=== PATIENT | male | born 1945 | race Caucasian/White ===

== ENCOUNTER 2016-04-12 06:42 | Emergency (ER) | payer MEDICARE, MEDICAID ==
--- NOTE | 2016-04-12 07:59 | ED ---
Lower Extremity - HPI Summary HPI Summary: Pt here w/ Lt lateral femur pain since falling out of wheelchair 2 days ago. Wheelchair brakes malfunctioned and he has poor balance -fell onto floor. Pain in leg started 6 hours after fall - intermittent and no exacerbating factors he can ID (ie. no pain w/ transition from sitting to standing, no pain w/ palpation , no pain w/ weight bearing). Pain is sometimes alleviated with gentle movement/ repositioning by his . Pain is sharp when it occurs -feels like a knife stabbing. Other times, feels like a muscle cramping. Denies back pain although he has h/o lumbar OA. 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 Denies new onset weakness, numbness, tingling into LE since fall. He does home exercises and uses wheelchair. Pt has RSD "all over". This pain feels different. Also reports a h/o prostate CA in remission - no change in urinary sx. Denies fever, chills. Eating and drinking well. Last BM was 3 days ago which is normal for him. Did not hit his head nor lose consciousness. Denies other areas of injury/pain ( ie. RAJPUT, neck pain, change in vision, N/V). - History of Current Complaint Chief Complaint: EDExtremityLower Stated Complaint: LEG PAIN Time Seen by Provider: 04/12/16 07:10 Hx Obtained From: Patient, Family/Labor/Excavator - Pain Intensity: 7 - Allergies/Home Medications Allergies/Adverse Reactions: Allergies Allergy/AdvReac Type Severity Reaction Status Date / Time Perfume Allergy Eyes Verified 03/11/14 10:54 Itchy/Swollen/Red/Watery PMH/Surg Hx/FS Hx/Imm Hx Previously Healthy: Yes Endocrine/Hematology History: Reports: Hx Diabetes Cardiovascular History: Reports: Hx Angina, Hx Coronary Artery Disease, Hx Hypertension, Other Cardiovascular Problems/Disorders - ablation Respiratory History: Denies: Hx Asthma, Hx Chronic Obstructive Pulmonary Disease (COPD) GI History: Reports: Hx Gall Bladder Disease - cholecystectomy, Hx Gastrointestinal Bleed - Ghotra's esophagus History: Reports: Hx Kidney Stones Musculoskeletal History: Reports: Hx Arthritis, Hx Back Problems - OA lumbar spine, Hx Gout Sensory History: Reports: Hx Contacts or Glasses - for reading, Hx Vision Problem - left eye limited Opthamlomology History: Reports: Hx Contacts or Glasses - for reading, Hx Vision Problem - left eye limited Neurological History: Reports: Other Neuro Impairments/Disorders - RSD Psychiatric History: Reports: Hx Post Traumatic Stress Disorder - Cancer History Cancer Type, Location and Year: prostate cancer Hx Chemotherapy: No Hx Radiation Therapy: No - Surgical History Surgery Procedure, Year, and Place: rotator cuff, gall bladder Infectious Disease History: No Infectious Disease History: Denies: Traveled Outside the [place] in Last 30 Days - Family History Known Family History: Positive: None - Social History Occupation: Retired Lives: With Family Alcohol Use: None Hx Substance Use: No Substance Use Type: Reports: None Hx Tobacco Use: No Smoking Status (MU): Never Smoked Tobacco Review of Systems Negative: Fever, Chills, Fatigue Negative: Chest Pain Negative: Shortness Of Breath Negative: Abdominal Pain, Vomiting, Diarrhea, Nausea Genitourinary: Negative Positive: see HPI Musculoskeletal: Other - see HPI Negative: Rash, Bruising Neurological: Other - see HPI Psychological: Normal All Other Systems Reviewed And Are Negative: Yes Physical Exam Triage Information Reviewed: Yes Vital Signs On Initial Exam: Initial Vitals Temp Pulse Resp BP Pulse Ox 98.6 F 63 15 146/59 93 04/12/16 06:44 04/12/16 06:44 04/12/16 06:44 04/12/16 06:44 04/12/16 06:44 Vital Signs Reviewed: Yes Appearance: Positive: Well-Appearing, No Pain Distress, Well-Nourished Skin: Positive: Warm, Dry - tibial region w/ pernell pitting edema and scaling old , dried skin - no erythema, no ecchymosis Head/Face: Positive: Normal Head/Face Inspection Eyes: Positive: Normal, EOMI, BETTIE, Conjunctiva Clear ENT: Positive: Hearing grossly normal, Pharynx normal, TMs normal - no hemotympanum, Other - no battlesign, no racoon sign Neck: Positive: Supple, Nontender - paracervical and spinous pp NTTP Respiratory/Lung Sounds: Positive: Clear to Auscultation, Breath Sounds Present. Negative: Rales, Rhonchi, Tracheal Deviation, Wheezes Cardiovascular: Positive: Normal, RRR, Pulses are Symmetrical in both Upper and Lower Extremities, Leg Edema Left, S1, S2 Abdomen Description: Positive: Nontender, Soft Bowel Sounds: Positive: Present Musculoskeletal: Positive: Other - strength and ROM limited on LLE D/T residual effects from CVA w/ Lt hemiparesis - passive ROM of ankle, knee, hip are non- painful; lumbar spinous pp, hip and femur are NTTP -no pernell deformity Neurological: Positive: Alert, Oriented to Person Place, Time, CN Intact II-III , Other - sensory/motor: see above Psychiatric: Positive: Normal Diagnostics - Vital Signs Vital Signs Temp Pulse Resp BP Pulse Ox 04/12/16 06:44 98.6 F 63 15 146/59 93 - Laboratory Lab Statement: Any lab studies that have been ordered have been reviewed, and results considered in the medical decision making process. Lower Extremity Course/Dx - Course Course Of Treatment: PT'S XR'S do not reveal fx or dislocation. His U/S is neg for DVT. He does not wish to have further testing today, rather would like to go home. Provided additional pain medication and he will be non-weight bearing in the event there is an occult fx. He will f/u w/ PCP for MRI as recommended by radiology. Discussed danger s/sx of when to return sooner. Pt and agree w/ plan and voice understanding. NOTE: pt reports he already has a h/o constipation. With addition of more pain medication, it has been advised that he increase his water intake, fiber intake and consider using miralax as well as a stool softener. Pt agrees w/ plan. - Diagnoses Provider Diagnoses: Constipation, LEG PAIN Discharge - Discharge Plan Condition: Stable Disposition: HOME Prescriptions: traMADol TAB* [Ultram*] 50 mg PO Q6HR PRN #20 tab MDD 4 PRN Reason: Pain Patient Education Materials: Constipation (ED), Leg Pain (ED) Referrals: Erika Watkins MD [Primary Care Provider] - Additional Instructions: Your XR of lumbar spine, hip and femur do not indicate a fracture or dislocation. It has been advised by radiology that you have an MRI if clinically warranted. Since you are bearing weight and pain is intermittent, it was agreed upon that you will avoid weight bearing on this leg and follow-up with PCP for outpatient imaging as recommended. A new pain medication has been sent to pharmacy - you may take this alternating with your current pain medication. Call PCP today to schedule follow-up today or tomorrow. *If symptoms worsen, return to ED
--- NOTE | 2016-04-12 08:33 | RAD ---
Indication: Pain post fall. Comparison: January 18, 2015 CT. Technique: AP and lateral views lumbar sacral spine. Report: Alignment is anatomic. No cortical disruption or trabecular impaction to indicate a vertebral body fracture. Multilevel mild vertebral endplate osteophytosis. Mild L4-L5 and L5-S1 disc space narrowing as well as facet joint osteoarthritis without significant change. Unremarkable soft tissue contours. IMPRESSION: No traumatic injury evident. Degenerative spondylosis and facet joint osteoarthritis without significant change.
--- NOTE | 2016-04-12 08:34 | RAD ---
Indication: LEFT hip and femur pain post fall. Comparison: January 18, 2015 CT. Technique: Supine AP pelvis and AP and frog-leg lateral views LEFT hip. Report: The LEFT hip is normally located. No cortical disruption or gross trabecular irregularity evident to indicate fracture. Mild osteophytosis and moderate medial joint space narrowing with symmetric degenerative arthropathy at the contralateral hip. Negative for pelvic fracture or joint diastases. Unremarkable soft tissue contours. IMPRESSION: No radiographic evidence for hip fracture. As x-rays may be negative with nondisplaced hip fracture if there is persistent clinical concern MRI or in setting of contraindication to MRI or limitation in emergent access to MRI CT would be suggested.
--- NOTE | 2016-04-12 08:38 | RAD ---
HISTORY: Fall, left hip pain COMPARISONS: January 17, 2015 VIEWS: 5, Frontal and lateral views FINDINGS: BONE DENSITY: Normal. BONES: There is no displaced fracture. JOINTS: There is osteoarthritis of the left hip and left knee ALIGNMENT: There is no dislocation. SOFT TISSUES: Unremarkable. OTHER FINDINGS: None. IMPRESSION: OSTEOARTHRITIS. NO ACUTE OSSEOUS INJURY. IF SYMPTOMS PERSIST, RECOMMEND REPEAT IMAGING.
--- NOTE | 2016-04-12 11:20 | RAD ---
Indication: Left lower extremity pain. Duplex Doppler sonography of the deep venous system of left lower extremity was performed. The left common femoral vein, proximal greater saphenous vein, proximal deep femoral vein, femoral vein, popliteal vein, posterior tibial veins and peroneal veins appear patent and compressible. IMPRESSION: No evidence of deep venous thrombosis of the left lower extremity is noted.
[2016-04-12 12:01] VITALS: BP 141/60
== END 2016-04-12 12:00 | disposition home or self-care (01) ==
LOC: ED 06:42
DX: M79.605 Pain in left leg (principal); K59.00 Constipation, unspecified; I25.10 Atherosclerotic heart disease of native coronary artery without angina pectoris; I20.9 Angina pectoris, unspecified; I10 Essential (primary) hypertension; Z87.442 Personal history of urinary calculi; Z85.46 Personal history of malignant neoplasm of prostate; W05.0XXA Fall from non-moving wheelchair, initial encounter; Y92.9 Unspecified place or not applicable
CPT/HCPCS: 72100; 99282

== ENCOUNTER 2016-04-17 09:07 | Emergency (ER) | payer MEDICARE, MEDICAID ==
[2016-04-17] MEDS ORDERED: LORazepam TAB(*) 1 MG PO ONE (09:37)
--- NOTE | 2016-04-17 10:18 | RAD ---
Indication: Back pain, back injury. CT of the lumbar spine was obtained in the axial plane. Sagittal and coronal reconstructed images were obtained. The sacrum and sacroiliac joints demonstrates fusion. L5-S1 there is no fracture noted. No facet arthropathy is noted. Vertebral bodies appear normal in height. No evidence of compression fracture is noted. At L4-L5 there is vacuum disc phenomenon, broad-based protrusion and right nerve root impingement due to broad-based protrusion. Facet arthropathy is noted. At L3-L4 degenerative disc disease with broad-based protrusion is noted. Facet and ligamentous hypertrophy is noted. There is calcification of the left ligamentum flavum. At L2-L3 broad-based protrusion flattens the thecal sac. Mild to moderate facet arthropathy is noted. At L1-L2 no disc protrusion is noted. No central or foraminal stenosis is noted. IMPRESSION: No fracture of the lumbar spine is noted. Multilevel degenerative disc disease is noted.
[2016-04-17 13:17] VITALS: BP 134/59
--- NOTE | 2016-04-17 14:00 | ED ---
Mirian Franklin Matthew, scribed for Joshua Escobar MD on 04/17/16 at 0954 . Lower Extremity - HPI Summary HPI Summary: A 70 y/o male presents to the ED with sudden, constant left upper leg pain since 2. The patient states that he had a mechanical fall at that time and presented to the ED, but no fracture was noted. He continues to have upper left leg, which is rated 9/10 in severity. The pain is worse with ambulation and palpation. PMHx includes CVA - History of Current Complaint Chief Complaint: EDExtremityLower Stated Complaint: LT LEG PAIN Time Seen by Provider: 04/17/16 09:20 Hx Obtained From: Patient Mechanism Of Injury: Fall From A Standing Position Onset of Pain: Immediate Onset/Duration: Still Present Severity Initially: Moderate Severity Currently: Moderate Pain Intensity: 8 Pain Scale Used: 0-10 Numeric Timing: Constant Location: Is Discrete @ - left upper leg Associated Signs And Symptoms: Positive: Negative Aggravating Factor(s): Ambulation, Other - palpation Alleviating Factor(s): Nothing - Allergies/Home Medications Allergies/Adverse Reactions: Allergies Allergy/AdvReac Type Severity Reaction Status Date / Time Perfume Allergy Eyes Verified 04/17/16 09:29 Itchy/Swollen/Red/Watery PMH/Surg Hx/FS Hx/Imm Hx Endocrine/Hematology History: Reports: Hx Diabetes Cardiovascular History: Reports: Hx Angina, Hx Coronary Artery Disease, Hx Hypertension, Other Cardiovascular Problems/Disorders - ablation Respiratory History: Denies: Hx Asthma, Hx Chronic Obstructive Pulmonary Disease (COPD) GI History: Reports: Hx Gall Bladder Disease - cholecystectomy, Hx Gastrointestinal Bleed - Ghotra's esophagus History: Reports: Hx Kidney Stones Musculoskeletal History: Reports: Hx Arthritis, Hx Back Problems - OA lumbar spine, Hx Gout Sensory History: Reports: Hx Contacts or Glasses - for reading, Hx Vision Problem - left eye limited Opthamlomology History: Reports: Hx Contacts or Glasses - for reading, Hx Vision Problem - left eye limited Neurological History: Reports: Other Neuro Impairments/Disorders - RSD Psychiatric History: Reports: Hx Post Traumatic Stress Disorder - Cancer History Cancer Type, Location and Year: prostate cancer Hx Chemotherapy: No Hx Radiation Therapy: No - Surgical History Surgery Procedure, Year, and Place: rotator cuff, gall bladder Infectious Disease History: No Infectious Disease History: Denies: Traveled Outside the [place] in Last 30 Days - Family History Family History: FHx of CVA - Social History Alcohol Use: None Hx Substance Use: No Substance Use Type: Reports: None Hx Tobacco Use: No Smoking Status (MU): Never Smoked Tobacco Review of Systems Constitutional: Negative Eyes: Negative ENT: Negative Cardiovascular: Negative Respiratory: Negative Gastrointestinal: Negative Genitourinary: Negative Positive: Myalgia - left upper leg pain Skin: Negative Positive: Headache Psychological: Normal All Other Systems Reviewed And Are Negative: Yes Physical Exam Triage Information Reviewed: Yes Vital Signs On Initial Exam: Initial Vitals Temp Pulse Resp BP Pulse Ox 98.5 F 60 16 139/53 97 04/17/16 09:29 04/17/16 09:29 04/17/16 09:29 04/17/16 09:29 04/17/16 09:29 Vital Signs Reviewed: Yes Appearance: Positive: Well-Appearing, No Pain Distress Skin: Positive: Warm, Skin Color Reflects Adequate Perfusion, Dry Head/Face: Positive: Normal Head/Face Inspection Eyes: Positive: Normal ENT: Positive: Normal ENT inspection Neck: Positive: Supple, Nontender Respiratory/Lung Sounds: Positive: Clear to Auscultation, Breath Sounds Present Cardiovascular: Positive: RRR Abdomen Description: Positive: Nontender, Soft Bowel Sounds: Positive: Present Musculoskeletal: Positive: Other - tenderness over the left sciatic region; NO tenderness to ROM of the hip or palpations Neurological: Positive: Normal, Other - Hx of CVA Diagnostics - Vital Signs Vital Signs Temp Pulse Resp BP Pulse Ox 04/17/16 09:29 98.5 F 60 16 139/53 97 - Laboratory Lab Statement: Any lab studies that have been ordered have been reviewed, and results considered in the medical decision making process. - CT L-Spine CT CT Interpretation: No Acute Changes - IMPRESSION: No fracture of the lumbar spine is noted. Multilevel degenerative disc disease is noted. CT Interpretation Completed By: Radiologist Re-Evaluation - Re-Evaluation First Eval Re-Evaluation Time: 12:56 Change: Improved Comment: The patient states that he's feeling much better. Reviewed labs and imaging results with the pateint and he agrees with the treatment plan. 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 He had no leg tenderness but did have sciatic tenderness. A CT was negative for fracture or obvious cord impingement and he expressed a lot of relief after he got ativan as a muscle relaxant. - Diagnoses Provider Diagnoses: Sciatica Discharge - Discharge Plan Condition: Stable Disposition: HOME Prescriptions: LORazepam TAB(*) [Ativan TAB(*)] 0.5 mg PO Q6H PRN #20 tab MDD 4 PRN Reason: Pain - Back Patient Education Materials: Lorazepam (By mouth), Sciatica (ED) Referrals: Erika Watkins MD [Primary Care Provider] - 3 Days Additional Instructions: Please follow-up with your primary care physician in 3 days. The documentation as recorded by the Mirian gray Matthew accurately reflects the service I personally performed and the decisions made by me, Joshua Escobar MD.
== END 2016-04-17 13:17 | disposition home or self-care (01) ==
LOC: ED 09:07
DX: M54.32 Sciatica, left side (principal); Z86.73 Personal history of transient ischemic attack (TIA), and cerebral infarction without residual deficits; Z87.442 Personal history of urinary calculi; Z85.46 Personal history of malignant neoplasm of prostate; E11.9 Type 2 diabetes mellitus without complications; W05.0XXA Fall from non-moving wheelchair, initial encounter; Y92.9 Unspecified place or not applicable; R10.9 Unspecified abdominal pain; K59.00 Constipation, unspecified; M79.605 Pain in left leg
CPT/HCPCS: 72131; 99282; A9270-GY

== ENCOUNTER 2016-04-17 15:22 | Emergency (ER) | payer MEDICARE, MEDICAID ==
[2016-04-17 15:27] VITALS: BP 134/45
[2016-04-17] MEDS ORDERED: Polyethylene Glycol 3350 BTL* 238 GM BTL PO ONE (17:08)
--- NOTE | 2016-04-17 17:25 | ED ---
Lower Extremity - HPI Summary HPI Summary: Patient presents to ED after recently discharged from ED earlier today with same complaint. Patient experiencing left hamstring pain with unable to bear full weight. Pain began suddenly approx 2 weeks ago with no fall or trauma associated. He presented earlier today with worsening sharp, stabbing pain in his L hamstring which is intermittent and worse while sitting. He was discharged after CT of spine negative for acute findings. He was placed on Ativan and now he complains of hallucinations. He lives alone and has had a stroke which has left his L side weak. He denies other pain. He takes oxycontin at baseline for his RSD. He was placed on oxycodone for this leg pain last week, and has not had a BM since. He is wheelchair bound, but is able to ambulate to bathroom from wheelchair, walking approx 3-4 steps. He has right leg swelling at baseline. Previous CT states if pain continue, MRI recommended, but patient has a pacemaker. - History of Current Complaint Chief Complaint: EDExtremityLower Stated Complaint: LT LEG PAIN Time Seen by Provider: 04/17/16 16:24 Hx Obtained From: Patient Mechanism Of Injury: Unknown Onset/Duration: Weeks Severity Initially: Moderate Severity Currently: Severe Pain Intensity: 10 Pain Scale Used: 0-10 Numeric Timing: Intermittent Location: Is Discrete @ - left hamstring Character Of Pain: Sharp, Spasmodic Associated Signs And Symptoms: Positive: Swelling - swelling at 3+ of right lower leg at baseline. Alleviating Factor(s): Nothing - rest and sitting in wheelchair worsens the symptoms, Other Able to Bear Weight: No - intermittently, when pain is not present - Risk Factors Gout Risk Factors: Age Over 40, Male, Hypertension, Hyperlipidemia, Peripherial Vascular Disease DVT Risk Factors: Malignancy - prostate, in remission, Other: - pacemaker Septic Arthritis Risk Factor: Extremes of Age - Allergies/Home Medications Allergies/Adverse Reactions: Allergies Allergy/AdvReac Type Severity Reaction Status Date / Time Perfume Allergy Eyes Verified 04/17/16 09:29 Itchy/Swollen/Red/Watery PMH/Surg Hx/FS Hx/Imm Hx Previously Healthy: Yes Endocrine/Hematology History: Reports: Hx Diabetes Cardiovascular History: Reports: Hx Angina, Hx Coronary Artery Disease, Hx Hypertension, Other Cardiovascular Problems/Disorders - ablation Respiratory History: Denies: Hx Asthma, Hx Chronic Obstructive Pulmonary Disease (COPD) GI History: Reports: Hx Gall Bladder Disease - cholecystectomy, Hx Gastrointestinal Bleed - Ghotra's esophagus History: Reports: Hx Kidney Stones Musculoskeletal History: Reports: Hx Arthritis, Hx Back Problems - OA lumbar spine, Hx Gout Sensory History: Reports: Hx Contacts or Glasses - for reading, Hx Vision Problem - left eye limited Opthamlomology History: Reports: Hx Contacts or Glasses - for reading, Hx Vision Problem - left eye limited Neurological History: Reports: Other Neuro Impairments/Disorders - RSD Psychiatric History: Reports: Hx Post Traumatic Stress Disorder - Cancer History Cancer Type, Location and Year: prostate cancer Hx Chemotherapy: No Hx Radiation Therapy: No - Surgical History Surgery Procedure, Year, and Place: rotator cuff, gall bladder Infectious Disease History: No Infectious Disease History: Denies: Traveled Outside the [place] in Last 30 Days - Family History Known Family History: Positive: None Family History: FHx of CVA - Social History Occupation: Retired Lives: Alone Alcohol Use: None Hx Substance Use: No Substance Use Type: Reports: None Hx Tobacco Use: No Smoking Status (MU): Never Smoked Tobacco Review of Systems Constitutional: Negative Cardiovascular: Negative Respiratory: Negative Gastrointestinal: Negative Positive: Abdominal Pain - d/t constipation, Other - constipation Positive: no symptoms reported, see HPI Positive: Myalgia - pain in left hamstring Positive: Other - swelling in left lower leg at 3+ Neurological: Negative Psychological: Normal All Other Systems Reviewed And Are Negative: Yes Physical Exam Triage Information Reviewed: Yes Vital Signs On Initial Exam: Initial Vitals Temp Pulse Resp BP Pulse Ox 98.3 F 65 17 134/45 100 04/17/16 15:24 04/17/16 15:24 04/17/16 15:24 04/17/16 15:24 04/17/16 15:24 Vital Signs Reviewed: Yes Appearance: Positive: No Pain Distress, Thin, Cachectic Skin: Positive: Warm Head/Face: Positive: Normal Head/Face Inspection Eyes: Positive: Normal, EOMI, BETTIE, Conjunctiva Clear Neck: Positive: Supple, Nontender, No Lymphadenopathy Respiratory/Lung Sounds: Positive: Clear to Auscultation, Breath Sounds Present Cardiovascular: Positive: Normal Abdomen Description: Positive: Nontender, Other: - constipation Bowel Sounds: Positive: Hypoactive Musculoskeletal: Positive: Limited @ - at baseline, unable to fully extend or flex at knee or hip, Pain @ - left posterior upper thigh on palpation Neurological: Positive: Normal, Sensory/Motor Intact, Speech Normal Psychiatric: Positive: Normal AVPU Assessment: Alert Diagnostics - Vital Signs Vital Signs Temp Pulse Resp BP Pulse Ox 04/17/16 15:24 98.3 F 65 17 134/45 100 - Laboratory Lab Statement: Any lab studies that have been ordered have been reviewed, and results considered in the medical decision making process. Lower Extremity Course/Dx - Course Course Of Treatment: Patient was recently dc'd after CT of spine negative. Now with hallucinations from ativan given this morning. Patient advised to DC ativan and try flexeril at night for muscle spasms. Follow up with PCP on saturday. Hospitalist consulted d/t patient living alone and worsening pain and problems with ambulating, hospitalist advised to send home on double pain medications and bowel regimine since we are unable to perform MRI. Patient no longer hallucinating and comfortable with plan. - Diagnoses Differential Diagnosis/HQI/PQRI: Positive: Contusion, Sprain, Strain, Tendonitis Provider Diagnoses: Upper leg pain Discharge - Discharge Plan Condition: Stable Disposition: HOME Prescriptions: Cyclobenzaprine TAB* [Flexeril TAB*] 10 mg PO BID PRN #10 tab MDD 2 PRN Reason: Pain Patient Education Materials: Muscle Strain (ED) Referrals: Erika Watkins MD [Primary Care Provider] - Additional Instructions: Follow up with your PCP on Saturday. Take Flexiril once before bedtime. If your symptoms worsen, you may double up on your pain medication until you are able to see your PCP. We were unable to perform the MRI due to your pacemaker. Continue with Miralax twice daily until you begin to have regular bowel movements, then once daily for 1 week or until you begin be more regular. Images - Images Full Body (No Head): 1 - pain on palpation
[2016-04-17] MEDS ORDERED: Cyclobenzaprine TAB* 10 MG PO ONE (17:30)
== END 2016-04-17 18:31 | disposition home or self-care (01) ==
LOC: ED 15:22
DX: R10.9 Unspecified abdominal pain (principal); K59.00 Constipation, unspecified; M79.605 Pain in left leg
CPT/HCPCS: 99282; A9270-GY

== ENCOUNTER 2016-04-19 19:10 | Emergency (ER) | payer MEDICARE, MEDICAID ==
[2016-04-19] MEDS ORDERED: HYDROmorphone INJ* 1 MG/ML CARPUJECT SYRINGE IM ONE (20:04)
[2016-04-19 20:46] LABS: Hematocrit 36 % (42-52); Hemoglobin 12.2 g/dl (14.0-18.0); Mean Corpuscular HGB Conc 34 g/dl (31-36); Mean Corpuscular Hemoglobin 30 pg (27-31); Mean Corpuscular Volume 89 fL (80-94); Mean Platelet Volume 9 um3 (7.4-10.4); Red Blood Count 4.05 10^6/ul (4.0-5.4); Red Cell Distribution Width 13 % (10.5-15); White Blood Count 8.8 10^3/ul (3.5-10.8)
--- NOTE | 2016-04-19 21:12 | RAD ---
HISTORY: Fall, right pelvic pain, left femur pain, fracture COMPARISONS: Left hip dated April 12, 2016 TECHNIQUE: Multiple contiguous axial CT images are obtained of the pelvis and left femur, with coronal and sagittal multiplanar reconstructions, without intravenous contrast administration. FINDINGS: BONE DENSITY: There is advanced osteopenia BONES: There is no displaced fracture. JOINTS: There is osteoarthritis of the hips. There is mild osteoarthritis of the SI joints. MUSCULATURE: Unremarkable ALIGNMENT: There is no dislocation. SOFT TISSUES: Unremarkable. OTHER FINDINGS: There is degenerative disc disease and osteoarthritis of the lower lumbar spine IMPRESSION: 1. OSTEOPENIA. 2. DEGENERATIVE CHANGES. 3. THERE IS NO DISPLACED FRACTURE. THE DEGREE OF OSTEOPENIA MAY MAKE A NONDISPLACED FRACTURE RADIOGRAPHICALLY OCCULT. IF THERE IS PERSISTENT CLINICAL CONCERN FOR FRACTURE, BONE SCAN AND/OR MRI MAY BE MORE SENSITIVE.
[2016-04-19 21:20] LABS: Albumin 4.1 g/dL (3.2-5.2); BUN/Creatinine Ratio 14.8 (8-20); C Reactive Protein 47.72 mg/L (< 5.00); Calcium 9.1 mg/dL (8.6-10.3); EGFR African American 19.6 (>60); EGFR Non-African American 15.2 (>60); Globulin 3.4 g/dL (2-4); Total Bilirubin 0.6 mg/dL (0.2-1.0); Total Protein 7.5 g/dL (6.4-8.9)
[2016-04-19 21:23] LABS: Potassium 5.5 mmol/L (3.5-5.0)
[2016-04-19] MEDS ORDERED: HYDROmorphone TAB* 2 MG PO ONE (22:34)
[2016-04-19 23:01] VITALS: BP 135/59
--- NOTE | 2016-04-19 23:01 | ED ---
Giuseppe Franklin Adam, scribed for Dominik Camacho MD on 04/19/16 at 1941 . Lower Extremity - HPI Summary HPI Summary: Pt is a 70 year old male presenting with left leg pain. It is localized in his left thigh and does not radiate to his groin, hip, or knee. The pain is intermittent and when it occurs his states that he screams in pain, even if he is sleeping. Pt states that it feels like he is being shot or stabbed in his thigh. The pain has been present intermittently like this for 2-3 weeks. Pt came to the ED last week (04/12); XR's ruled out fracture and disclocation and ultrasound ruled out DVT. He was discharged home with tramadol. The pain persisted though so he returned to the ED on 04/[address] done which was negative. He was discharged with lorazepam for sciatica. He returned to the ED later that same day and was discharged with cyclobenzaprine. Pt states that nothing has alleviated the pain. He also c/o some itchiness in his left hip, as well as increased weakness of the left leg (he has Hx of CVA with left side paralysis). He states that he fell last week because of the leg weakness. Additional PMHx includes RSD, DM, RA, and prostate CA. Surgical Hx of skin graft but no bone-related surgeries. - History of Current Complaint Chief Complaint: EDExtremityLower Stated Complaint: LEG PAIN Time Seen by Provider: 04/19/16 19:35 Hx Obtained From: Patient Mechanism Of Injury: Unknown Onset of Pain: Days Onset/Duration: Still Present Severity Initially: Mild Severity Currently: Moderate Pain Intensity: 10 Pain Scale Used: 0-10 Numeric Timing: Intermittent Location: Is Discrete @ - Left thigh Character Of Pain: Sharp Associated Signs And Symptoms: Positive: Negative Aggravating Factor(s): Movement Alleviating Factor(s): Nothing Able to Bear Weight: No - In wheelchair s/p CVA - Allergies/Home Medications Allergies/Adverse Reactions: Allergies Allergy/AdvReac Type Severity Reaction Status Date / Time Perfume Allergy Eyes Verified 04/17/16 09:29 Itchy/Swollen/Red/Watery PMH/Surg Hx/FS Hx/Imm Hx Endocrine/Hematology History: Reports: Hx Diabetes Cardiovascular History: Reports: Hx Angina, Hx Coronary Artery Disease, Hx Hypertension, Other Cardiovascular Problems/Disorders - ablation Respiratory History: Denies: Hx Asthma, Hx Chronic Obstructive Pulmonary Disease (COPD) GI History: Reports: Hx Gall Bladder Disease - cholecystectomy, Hx Gastrointestinal Bleed - Ghotra's esophagus History: Reports: Hx Kidney Stones Musculoskeletal History: Reports: Hx Arthritis, Hx Back Problems - OA lumbar spine, Hx Gout Sensory History: Reports: Hx Contacts or Glasses - for reading, Hx Vision Problem - left eye limited Opthamlomology History: Reports: Hx Contacts or Glasses - for reading, Hx Vision Problem - left eye limited Neurological History: Reports: Other Neuro Impairments/Disorders - RSD Psychiatric History: Reports: Hx Post Traumatic Stress Disorder - Cancer History Cancer Type, Location and Year: prostate cancer Hx Chemotherapy: No Hx Radiation Therapy: No - Surgical History Surgery Procedure, Year, and Place: rotator cuff, gall bladder Infectious Disease History: No Infectious Disease History: Denies: Traveled Outside the [place] in Last 30 Days - Family History Known Family History: Positive: Other - CVA Family History: FHx of CVA - Social History Occupation: Disabled Lives: At [employer] Alcohol Use: None Hx Substance Use: No Substance Use Type: Reports: None Hx Tobacco Use: No Smoking Status (MU): Never Smoked Tobacco Review of Systems Negative: Fever Positive: Myalgia - Left leg Positive: Weakness - Left leg All Other Systems Reviewed And Are Negative: Yes Physical Exam - Summary Physical Exam Summary: The patient is well-nourished in no acute distress and in no acute pain. The skin is warm and dry and skin color reflects adequate perfusion. No rashes. HEENT: The head is normocephalic and atraumatic. The pupils are equal and reactive. The conjunctivae are clear and without drainage. Nares are patent and without drainage. Mouth reveals moist mucous membranes and the throat is without erythema and exudate. The external ears are intact. The ear canals are patent and without drainage. The tympanic membranes are intact. Neck is supple with full range of motion and non-tender. There are no carotid bruits. There is no neck vein distension. Respiratory: Chest is non-tender. Lungs are clear to auscultation and breath sounds are symmetrical and equal. Cardiovascular: Heart is regular rate and rhythm. There is no murmur or rub auscultated. Abdomen: The abdomen is soft and non-tender. There are normal bowel sounds heard in all four quadrants and there is no organomegaly palpated. Musculoskeletal: There is no reproducible back tenderness. Pain at left straight leg raise. There is good capillary refill. Right ankle edema. Neurological: Patient is alert and oriented to person, place and time. Cranial nerves are grossly intact. Left side weakness s/p CVA. Psychiatric: The patient has an appropriate affect and does not exhibit any anxiety or depression. Triage Information Reviewed: Yes Vital Signs On Initial Exam: Initial Vitals Temp Pulse Resp BP Pulse Ox 98.1 F 61 20 134/60 100 04/19/16 19:15 04/19/16 19:15 04/19/16 19:15 04/19/16 19:15 04/19/16 19:15 Vital Signs Reviewed: Yes Diagnostics - Vital Signs Vital Signs Temp Pulse Resp BP Pulse Ox 04/19/16 19:15 98.1 F 61 20 134/60 100 - Laboratory Lab Results: Lab Results 04/19/16 04/19/16 Range/Units 20:39 20:39 WBC 8.8 (3.5-10.8) 10^3/ul RBC 4.05 (4.0-5.4) 10^6/ul Hgb 12.2 L (14.0-18.0) g/dl Hct 36 L (42-52) % MCV 89 (80-94) fL MCH 30 (27-31) pg MCHC 34 (31-36) g/dl RDW 13 (10.5-15) % Plt Count 186 (150-450) 10^3/ul MPV 9 (7.4-10.4) um3 Neut % (Auto) 68.1 (38-83) % Lymph % (Auto) 17.8 L (25-47) % Gilliam % (Auto) 10.7 H (1-9) % Eos % (Auto) 2.8 (0-6) % Baso % (Auto) 0.6 (0-2) % Absolute Neuts (auto) 6.0 (1.5-7.7) 10^3/ul Absolute Lymphs (auto) 1.6 (1.0-4.8) 10^3/ul Absolute Monos (auto) 0.9 H (0-0.8) 10^3/ul Absolute Eos (auto) 0.2 (0-0.6) 10^3/ul Absolute Basos (auto) 0.1 (0-0.2) 10^3/ul Absolute Nucleated RBC 0.01 10^3/ul Nucleated RBC % 0.1 Sodium 133 (133-145) mmol/L Potassium 5.5 H (3.5-5.0) mmol/L Chloride 102 (101-111) mmol/L Carbon Dioxide 23 (22-32) mmol/L Anion Gap 8 (2-11) mmol/L BUN 58 H (6-24) mg/dL Creatinine 3.91 H (0.67-1.17) mg/dL Est GFR ( Amer) 19.6 (>60) Est GFR (Non-Af Amer) 15.2 (>60) BUN/Creatinine Ratio 14.8 (8-20) Glucose 139 H (70-100) mg/dL Calcium 9.1 (8.6-10.3) mg/dL Total Bilirubin 0.60 (0.2-1.0) mg/dL AST 20 (13-39) U/L ALT 12 (7-52) U/L Alkaline Phosphatase 85 (34-104) U/L C-Reactive Protein 47.72 H (< 5.00) mg/L Total Protein 7.5 (6.4-8.9) g/dL Albumin 4.1 (3.2-5.2) g/dL Globulin 3.4 (2-4) g/dL Albumin/Globulin Ratio 1.2 (1-3) Result Diagrams: 04/19/16 20:39 04/19/16 20:39 Lab Statement: Any lab studies that have been ordered have been reviewed, and results considered in the medical decision making process. - CT LOWER EXTREMITY CT Interpretation Completed By: Radiologist - IMPRESSION: 1. OSTEOPENIA. 2. DEGENERATIVE CHANGES. 3. THERE IS NO DISPLACED FRACTURE. THE DEGREE OF OSTEOPENIA MAY MAKE A NONDISPLACED FRACTURE RADIOGRAPHICALLY OCCULT. IF THERE IS PERSISTENT CLINICAL CONCERN FOR FRACTURE, BONE SCAN AND/OR MRI MAY BE MORE SENSITIVE. PELVIS CT Interpretation Completed By: Radiologist - IMPRESSION: 1. OSTEOPENIA. 2. DEGENERATIVE CHANGES. 3. THERE IS NO DISPLACED FRACTURE. THE DEGREE OF OSTEOPENIA MAY MAKE A NONDISPLACED FRACTURE RADIOGRAPHICALLY OCCULT. IF THERE IS PERSISTENT CLINICAL CONCERN FOR FRACTURE, BONE SCAN AND/OR MRI MAY BE MORE SENSITIVE. Re-Evaluation - Re-Evaluation First Eval Change: Improved - pt's pain was gone. discussed adding break through pain medication to take if pain returns. the old records were reviewed. Lower Extremity Course/Dx - Diagnoses Differential Diagnosis/HQI/PQRI: Positive: Other - neuropathy, degenerative disc disease Provider Diagnoses: Left leg pain, Neuropathy, Renal insufficiency Discharge - Discharge Plan Condition: Stable Disposition: HOME Prescriptions: HYDROmorphone TAB* [Dilaudid TAB*] 2 mg PO Q6H PRN #20 tab MDD 4 PRN Reason: pain Patient Education Materials: Leg Pain (ED) Referrals: Erika Watkins MD [Primary Care Provider] - Felton Rahman DO [Doctor of Osteopathy] - Additional Instructions: Follow up with Dr. Watkins and Dr. Rahman as scheduled. The documentation as recorded by the Giuseppe gray Adam accurately reflects the service I personally performed and the decisions made by me, Dominik Camacho MD.
== END 2016-04-19 23:08 | disposition home or self-care (01) ==
LOC: ED 19:10
DX: N28.9 Disorder of kidney and ureter, unspecified (principal); M85.80 Other specified disorders of bone density and structure, unspecified site; G62.9 Polyneuropathy, unspecified; M79.605 Pain in left leg
CPT/HCPCS: 36415; 72192; 80053; 85025; 86140; 96372; 99283; A9270-GY; J1170

== ENCOUNTER 2016-04-25 11:45 | Emergency (ER) | payer MEDICARE, MEDICAID ==
[2016-04-25] MEDS ORDERED: HYDROmorphone INJ* 1 MG/ML CARPUJECT SYRINGE IV SLOW PU ONE (12:07)
--- NOTE | 2016-04-25 12:14 | ED ---
Lower Extremity - HPI Summary HPI Summary: Patient presents for re-evaluation of L thigh pain for the last several weeks to nearly a month. Denies trauma, allev factors, change to character or severity. Has had multiple ED visits, but without satisfactory shelter plan. Had CT of lumbar, hip, pelvis recently without acute findings and subsequently sent home on differing medications for antispasmodic and analgesic effect. Claims to have seen his PCP and that they do not prescribe pain medications. Girlfriend (NOT ) and patient claim that he had a stroke with residual left hemiparesis and is wheelchair dependent, yet lives alone in a fdc. - History of Current Complaint Chief Complaint: EDExtremityLower Stated Complaint: GENERAL PAIN Time Seen by Provider: 04/25/16 11:56 Hx Obtained From: Patient, Family/Service Line Layer - Girlfriend (NOT LEGAL ), Brother of Girlfriend Onset/Duration: Minutes Severity Initially: Moderate Severity Currently: Moderate Pain Intensity: 7 - Allergies/Home Medications Allergies/Adverse Reactions: Allergies Allergy/AdvReac Type Severity Reaction Status Date / Time Perfume Allergy Eyes Verified 04/17/16 09:29 Itchy/Swollen/Red/Watery PMH/Surg Hx/FS Hx/Imm Hx Previously Healthy: No - L hemiparetic stroke Endocrine/Hematology History: Reports: Hx Diabetes Cardiovascular History: Reports: Hx Angina, Hx Coronary Artery Disease, Hx Hypertension, Other Cardiovascular Problems/Disorders - ablation Respiratory History: Denies: Hx Asthma, Hx Chronic Obstructive Pulmonary Disease (COPD) GI History: Reports: Hx Gall Bladder Disease - cholecystectomy, Hx Gastrointestinal Bleed - Ghotra's esophagus History: Reports: Hx Kidney Stones Musculoskeletal History: Reports: Hx Arthritis, Hx Back Problems - OA lumbar spine, Hx Gout Sensory History: Reports: Hx Contacts or Glasses - for reading, Hx Vision Problem - left eye limited Opthamlomology History: Reports: Hx Contacts or Glasses - for reading, Hx Vision Problem - left eye limited Neurological History: Reports: Other Neuro Impairments/Disorders - RSD Psychiatric History: Reports: Hx Post Traumatic Stress Disorder - Cancer History Cancer Type, Location and Year: prostate cancer Hx Chemotherapy: No Hx Radiation Therapy: No - Surgical History Surgery Procedure, Year, and Place: rotator cuff, gall bladder Infectious Disease History: No Infectious Disease History: Denies: Traveled Outside the [place] in Last 30 Days - Family History Known Family History: Positive: None, Other - CVA Family History: FHx of CVA - Social History Alcohol Use: None Hx Substance Use: No Substance Use Type: Reports: None Hx Tobacco Use: No Smoking Status (MU): Never Smoked Tobacco Review of Systems Negative: Fever, Chills Negative: Headache, Weakness All Other Systems Reviewed And Are Negative: Yes Physical Exam Triage Information Reviewed: Yes Vital Signs On Initial Exam: Initial Vitals Temp Pulse Resp BP Pulse Ox 99.6 F 65 16 139/47 97 04/25/16 11:46 04/25/16 11:46 04/25/16 11:46 04/25/16 11:46 04/25/16 11:46 Vital Signs Reviewed: Yes Appearance: Positive: Well-Appearing, No Pain Distress, Well-Nourished Skin: Positive: Warm, Skin Color Reflects Adequate Perfusion, Dry Eyes: Positive: Normal, EOMI, BETTIE ENT: Positive: Normal ENT inspection, Hearing grossly normal, Pharynx normal Neck: Positive: Supple Respiratory/Lung Sounds: Positive: Clear to Auscultation, Breath Sounds Present Cardiovascular: Positive: Normal, RRR, Pulses are Symmetrical in both Upper and Lower Extremities Abdomen Description: Positive: Nontender, No Organomegaly, Soft. Negative: CVA Tenderness (R), CVA Tenderness (L) Male Genital Exam: Positive: normal genitalia. Negative: scrotum tenderness (R) , scrotum tenderness (L) Neurological: Positive: Alert, Oriented to Person Place, Time, CN Intact II-III , Unable to Assess Gait, Other - Residual L hemiparesis with diminished sensation. R arm with 4/5 strength. R leg with 3/5 strength.. Negative: Babinski Bilateral - Alok Coma Scale Coma Scale Total: 15 Diagnostics - Vital Signs Vital Signs Temp Pulse Resp BP Pulse Ox 04/25/16 11:46 99.6 F 65 16 139/47 97 - Laboratory Lab Statement: Any lab studies that have been ordered have been reviewed, and results considered in the medical decision making process. Lower Extremity Course/Dx - Diagnoses Differential Diagnosis/HQI/PQRI: Positive: Other - Primary concern for chronic pain in the left thigh, although not reproducible nor focally identifiable Provider Diagnoses: Chronic pain - Physician Notifications Discussed Care of Patient With: Dr. Watkins recommends social work evaluation in ED or from his office. He clarified that patient lives with girlfriend and NOT alone, to NOT give narcotics since he is on shelter oxycodone and oxyCONTIN from Felton Rahman DO for the last 1 year, has had multiple discussions with the patient and girlfriend about termite control servicer placement, alternative therapies sicne already with pain management and high dose narcotics. Discharge - Discharge Plan Condition: Stable Disposition: HOME Patient Education Materials: Chronic Pain (ED) Referrals: Erika Watkins MD [Primary Care Provider] - Felton Rahman DO [Doctor of Osteopathy] -
[2016-04-25] MEDS ORDERED: Ketorolac INJ* 30 MG/ML 1 ML VIAL IM ONE (12:29)
[2016-04-25 16:12] VITALS: BP 149/58
== END 2016-04-25 15:57 | disposition home or self-care (01) ==
LOC: ED 11:45
DX: G89.29 Other chronic pain (principal); Z86.73 Personal history of transient ischemic attack (TIA), and cerebral infarction without residual deficits
CPT/HCPCS: 96372; 96374; 99282; J1170; J1885

== ENCOUNTER 2016-05-02 08:56 | Emergency (ER) | payer MEDICARE, MEDICAID ==
[2016-05-02] MEDS ORDERED: Succinylcholine* 20 MG/ML 10 ML VIAL ONE (09:30)
[2016-05-02] MEDS ORDERED: EPINEPHrine SYR 0.1 MG/ML* (1:10,000) SYRINGE ONE ×4 (09:36→09:47)
[2016-05-02 10:45] VITALS: BP 123/107
--- NOTE | 2016-05-02 11:19 | ED ---
Nicholas Franklin Benjamin, scribed for Lydia Altamirano MD on 05/02/16 at 0944 . Altered Mental Status - HPI Summary HPI Summary: 70yo male BIB EMS for AMS. Pt also reports abd. pain, low temperature. Unable to obtain full HPI due to AMS. LEVEL 5 CAVEATPt has an indwelling catheter in place. - History Of Current Complaint Chief Complaint: EDAltMentalStatus Stated Complaint: AMS Time Seen by Provider: 05/02/16 08:58 Hx Obtained From: EMS Hx From Patient Unobtainable Due To: Altered Mental Status Onset/Duration: Unknown Character: Responsiveness - decreased Aggravating Factor(s): Unknown Alleviating Factor(s): Unknown - Allergies/Home Medications Allergies/Adverse Reactions: Allergies Allergy/AdvReac Type Severity Reaction Status Date / Time Perfume Allergy Eyes Verified 04/17/16 09:29 Itchy/Swollen/Red/Watery PMH/Surg Hx/FS Hx/Imm Hx Endocrine/Hematology History: Reports: Hx Diabetes Cardiovascular History: Reports: Hx Angina, Hx Coronary Artery Disease, Hx Hypertension, Other Cardiovascular Problems/Disorders - ablation Respiratory History: Denies: Hx Asthma, Hx Chronic Obstructive Pulmonary Disease (COPD) GI History: Reports: Hx Gall Bladder Disease - cholecystectomy, Hx Gastrointestinal Bleed - Ghotra's esophagus History: Reports: Hx Kidney Stones Musculoskeletal History: Reports: Hx Arthritis, Hx Back Problems - OA lumbar spine, Hx Gout Sensory History: Reports: Hx Contacts or Glasses - for reading, Hx Vision Problem - left eye limited Opthamlomology History: Reports: Hx Contacts or Glasses - for reading, Hx Vision Problem - left eye limited Neurological History: Reports: Other Neuro Impairments/Disorders - RSD Psychiatric History: Reports: Hx Post Traumatic Stress Disorder - Cancer History Cancer Type, Location and Year: prostate cancer Hx Chemotherapy: No Hx Radiation Therapy: No - Surgical History Surgery Procedure, Year, and Place: rotator cuff, gall bladder Infectious Disease History: Denies: Traveled Outside the [place] in Last 30 Days - Family History Known Family History: Positive: None, Other - CVA Family History: FHx of CVA - Social History Alcohol Use: None Hx Substance Use: No Substance Use Type: Reports: None Hx Tobacco Use: No Smoking Status (MU): Never Smoked Tobacco Review of Systems - ROS Summary Review of Systems Summary: Unable to obtain due to AMS. LEVEL 5 CAVEAT Positive: Abdominal Pain All Other Systems Reviewed And Are Negative: Yes Physical Exam Triage Information Reviewed: Yes Vital Signs On Initial Exam: Initial Vitals Pulse Resp BP Pulse Ox 98 26 123/107 95 05/02/16 09:00 05/02/16 09:00 05/02/16 09:00 05/02/16 09:00 Vital Signs Reviewed: Yes Appearance: Positive: Ill-Appearing - decreased responsiveness Skin: Positive: Warm - toes are warm, Skin Color Reflects Adequate Perfusion, Dry, Other - desiccated left leg Eyes: Positive: BETTIE Neck: Positive: Supple Respiratory/Lung Sounds: Positive: Clear to Auscultation Cardiovascular: Positive: RRR Abdomen Description: Positive: Soft, Other: - abdomen tender to palpation Male Genital Exam: Positive: other - Indwelling catheter placed Musculoskeletal: Positive: Other Neurological: Positive: Disoriented - Alok Coma Scale Best Eye Response: 3 - To Speech Best Motor Response: 5 - Purposeful Movement Best Verbal Response: 3 - Inappropriate Words Diagnostics - Vital Signs Vital Signs Pulse Resp BP Pulse Ox 05/02/16 09:30 132 32 05/02/16 09:15 86 24 05/02/16 09:00 98 26 123/107 95 - Laboratory Lab Statement: Any lab studies that have been ordered have been reviewed, and results considered in the medical decision making process. Altered Mental Statu Course/Dx - Course Course Of Treatment: This pt came in confused on 5L O2 with an initial normal bp , but appearing quite septic. Nurses were unable to obtain an IV, pt also did not have an appreciable EJ. As a femoral line was being placed the pt became unresponsive. CPR was started, pt was intubated and a IO was placed. Pt was given several rounds of epi and Dr. Emanuel did a cardiac u/s showing minimal activity. Pt did have some agonal breathing and the family was called into the room and was able to be with him.Kai Whakaruruhautarah Crews was with the family and the [employer] architect Sav Yanes was contacted and the pt was deemed not a coroners case. the body was released to the [facility] - Diagnoses Discharge Diagnoses: Sepsis, Asystole - Provider Notifications Discussed Care Of Patient With: Dr. Huffman and ICU paged @[phone] Discharge - Discharge Plan Condition: Disposition: The documentation as recorded by the Nicholas gray Benjamin accurately reflects the service I personally performed and the decisions made by me, Lydia Altamirano MD.
== END 2016-05-02 10:10 | disposition expired ==
LOC: ED 08:56
DX: I46.9 Cardiac arrest, cause unspecified (principal); A41.9 Sepsis, unspecified organism; R10.9 Unspecified abdominal pain
CPT/HCPCS: 92950; 99283; J0171; J0330